=== PATIENT | female | born 1955 | race Hispanic/Latino ===

== ENCOUNTER → 2019-06-08 | Outpatient (CLI) | payer OTHER, MEDICARE | END | disposition home or self-care (01) | LOC: OIH 11:16 | PROVIDERS: ATTEND Internal Medicine | DX: M17.12 Unilateral primary osteoarthritis, left knee (principal); M47.816 Spondylosis without myelopathy or radiculopathy, lumbar region; M06.4 Inflammatory polyarthropathy | CPT/HCPCS: 72100; 73560 ==